=== PATIENT | male | born 1970 | race African-American/Black ===

== ENCOUNTER 2019-07-29 11:57 | Emergency (ER) | payer OTHER ==
[2019-07-29] MEDS ORDERED: predniSONE 20 MG TAB ONE (14:02)
[2019-07-29] MEDS ORDERED: Famotidine/PF 20 mg/2ml Vial ONE (14:02)
[2019-07-29] MEDS ORDERED: diphenhydrAMINE 50 MG/ML VIAL ONE (14:02)
[2019-07-29 14:17] LABS: #Basophils 0.1 thou/uL (0.0-0.2); #Lymphocytes 0.8 thou/uL (1.20-3.40); #Monocytes 0.2 thou/uL (0.11-0.59); #Neutrophils 9.8 thou/uL (1.40-6.50); %Lymphocytes 6.9 % (21.0-51.0); %Monocytes 2.1 % (0.0-10.0); %Neutrophils 89.9 % (42.0-75.0); Hemoglobin 14.6 g/dL (14.0-18.0); Mean Corpuscular HGB CONC 34.1 g/dL (32.0-36.0); Mean Corpuscular Hemoglobin 30.4 pg (27.0-31.0); Mean Corpuscular Volume 89.4 fL (78.0-98.0); Mean Platelet Volume 9.4 fL (7.4-10.4); Platelet Count 204 thou/uL (130-400); RBC Distribution Width 11.7 % (11.5-14.5); Red Blood Cell (RBC) Count 4.81 mill/uL (4.70-6.10); White Blood Cell (WBC) Count 10.9 thou/uL (4.8-10.8)
[2019-07-29 14:46] LABS: ALT (SGPT) 8 U/L (8-55); AST (SGOT) 18 U/L (5-34); Albumin 4.3 g/dL (3.5-5.0); Alkaline Phosphatase 67 U/L (40-110); Anion Gap 13 mmol/L (10-20); BUN (Urea Nitrogen) 21 mg/dL (8.9-20.6); Calc. Creatinine Clearance 0 mL/min (70-130); Calcium 9.7 mg/dL (7.8-10.44); Carbon Dioxide 21 mmol/L (22-29); Chloride 106 mmol/L (98-107); Estimated GFR-MDRD 63; Globulin 2.7 g/dL (2.4-3.5); Glucose 128 mg/dL (70-105); Potassium 3.9 mmol/L (3.5-5.1); Sodium 136 mmol/L (136-145)
== END 2019-07-29 17:38 | disposition home or self-care (01) ==
LOC: ERS 11:57
DX: R42 Dizziness and giddiness (principal); L27.0 Generalized skin eruption due to drugs and medicaments taken internally; T36.4X5A Adverse effect of tetracyclines, initial encounter; L50.0 Allergic urticaria; E78.5 Hyperlipidemia, unspecified; I10 Essential (primary) hypertension; Z79.899 Other long term (current) drug therapy; Z87.891 Personal history of nicotine dependence
CPT/HCPCS: 36415; 80053; 85025; 93005; 96374; 96375; J1200; J7512; S0028